=== PATIENT | male | born 1985 | race Caucasian/White ===

== ENCOUNTER → 2019-02-28 | Outpatient (CLI) | payer BC | LOC: COL.LAB 13:44 | DX: L50.9 Urticaria, unspecified (principal) ==

== ENCOUNTER 2019-04-26 14:24 | Outpatient (CLI) | payer BC ==
[~2019-04-26] VITALS: Ht 177.8 cm; Wt 121.8 kg
[2019-04-26] MEDS ORDERED: ZYRTEC 10MG10 MG PO (14:39)
[2019-04-26] MEDS ORDERED: PRILOSEC 20MG20 MG PO (14:40)
[2019-04-26] MEDS ORDERED: PREDNISONE10 MG PO (14:41)
[2019-04-26] MEDS ORDERED: PEPCID 20MG TAB20 MG PO (14:42)
[2019-04-26] MEDS ORDERED: NATURAL IRON65 MG PO (14:43)
[2019-04-26] MEDS ORDERED: SINGULAIR 110 MG/TAB PO (14:43)
[2019-04-26 15:00] VITALS: BP 146/81; PULSE 77; TEMP 97.7
--- NOTE | 2019-04-26 17:02 | NUR ---
Pt observed for 2 hours post injection without reaction
== END 2019-04-26 17:05 | disposition home or self-care (01) ==
LOC: EUO 14:24
DX: L50.1 Idiopathic urticaria (principal); Z79.899 Other long term (current) drug therapy
CPT/HCPCS: J2357

== ENCOUNTER 2019-05-24 13:56 | Outpatient (CLI) | payer BC ==
[~2019-05-24] VITALS: Ht 177.8 cm; Wt 123.7 kg
[~2019-05-24 13:56] MED LIST: NATURAL IRON65 MG PO; PEPCID 20MG TAB20 MG PO; PREDNISONE10 MG PO; PRILOSEC 20MG20 MG PO; SINGULAIR 110 MG/TAB PO; ZYRTEC 10MG10 MG PO
[2019-05-24 14:20] VITALS: BP 133/88; PULSE 84; TEMP 97.4
== END 2019-05-24 14:20 | disposition home or self-care (01) ==
LOC: EUO 13:56
DX: L50.9 Urticaria, unspecified (principal); Z79.899 Other long term (current) drug therapy
CPT/HCPCS: J2357

== ENCOUNTER 2019-07-19 14:06 | Outpatient (CLI) | payer BC ==
[~2019-07-19] VITALS: Ht 177.8 cm; Wt 122.0 kg
[2019-07-19 14:35] VITALS: BP 124/78; PULSE 77; TEMP 98.1
== END 2019-07-19 14:30 | disposition home or self-care (01) ==
LOC: EUO 14:06
DX: L50.1 Idiopathic urticaria (principal); Z79.51 Long term (current) use of inhaled steroids
CPT/HCPCS: J2357

== ENCOUNTER 2019-08-29 13:31 | Outpatient (CLI) | payer BC ==
[~2019-08-29] VITALS: Ht 177.8 cm; Wt 123.3 kg
[2019-08-29 14:15] VITALS: BP 132/76; PULSE 76; TEMP 97.7
== END 2019-08-29 15:24 | disposition home or self-care (01) ==
LOC: EUO 13:31
DX: L50.1 Idiopathic urticaria (principal); Z79.51 Long term (current) use of inhaled steroids
CPT/HCPCS: J2357

== ENCOUNTER 2019-09-26 13:13 | Outpatient (CLI) | payer BC ==
[~2019-09-26] VITALS: Ht 177.8 cm; Wt 123.4 kg
[2019-09-26] MEDS ORDERED: PRILOSEC 20MG20 MG PO (13:32)
[2019-09-26 13:35] VITALS: BP 127/85; PULSE 83; TEMP 97.8
== END 2019-09-26 13:44 | disposition home or self-care (01) ==
LOC: EUO 13:13
DX: L50.1 Idiopathic urticaria (principal); Z79.899 Other long term (current) drug therapy
CPT/HCPCS: J2357

== ENCOUNTER 2019-10-24 13:00 | Outpatient (CLI) | payer BC ==
[~2019-10-24] VITALS: Ht 177.8 cm; Wt 123.7 kg
[2019-10-24 13:42] VITALS: BP 118/82; PULSE 78; TEMP 98
== END 2019-10-24 13:43 | disposition home or self-care (01) ==
LOC: EUO 13:00
DX: L50.1 Idiopathic urticaria (principal)
CPT/HCPCS: J2357

== ENCOUNTER 2019-11-24 13:07 | Outpatient (CLI) | payer BC ==
[~2019-11-24] VITALS: Ht 177.8 cm; Wt 121.8 kg
[2019-11-24 13:30] VITALS: BP 136/88; PULSE 84; TEMP 97.8
== END 2019-11-24 13:46 | disposition home or self-care (01) ==
LOC: EUO 13:07
DX: L50.1 Idiopathic urticaria (principal); Z79.899 Other long term (current) drug therapy
CPT/HCPCS: J2357

== ENCOUNTER 2020-01-19 13:30 | Outpatient (CLI) | payer BC ==
[~2020-01-19] VITALS: Ht 177.8 cm; Wt 122.4 kg
[2020-01-19 13:40] VITALS: BP 122/83; PULSE 80; TEMP 97.6
== END 2020-01-19 17:14 | disposition home or self-care (01) ==
LOC: EUO 13:30
DX: L50.9 Urticaria, unspecified (principal); Z79.899 Other long term (current) drug therapy
CPT/HCPCS: J2357

== ENCOUNTER 2020-03-15 08:01 | Outpatient (CLI) | payer BC ==
[~2020-03-15] VITALS: Ht 177.8 cm; Wt 123.3 kg
[2020-03-15 09:00] VITALS: BP 125/85; PULSE 70; TEMP 98.1
== END 2020-03-15 09:41 | disposition home or self-care (01) ==
LOC: EUO 08:01
DX: L50.9 Urticaria, unspecified (principal); Z79.899 Other long term (current) drug therapy
CPT/HCPCS: J2357

== ENCOUNTER 2020-07-05 13:59 | Outpatient (CLI) | payer BC ==
[~2020-07-05] VITALS: Ht 177.8 cm; Wt 115.0 kg
[2020-07-05 14:51] VITALS: BP 126/83; PULSE 72; TEMP 97.5
== END 2020-07-05 14:52 | disposition home or self-care (01) ==
LOC: EUO 13:59
DX: L50.9 Urticaria, unspecified (principal); Z79.899 Other long term (current) drug therapy
CPT/HCPCS: J2357

== ENCOUNTER 2020-09-04 13:53 | Outpatient (CLI) | payer BC ==
[~2020-09-04] VITALS: Ht 177.8 cm; Wt 118.3 kg
[2020-09-04 14:19] VITALS: BP 111/96; PULSE 86; TEMP 97.4
== END 2020-09-04 14:31 | disposition home or self-care (01) ==
LOC: EUO 13:53
DX: L50.9 Urticaria, unspecified (principal); Z79.899 Other long term (current) drug therapy
CPT/HCPCS: J2357

== ENCOUNTER 2020-10-30 13:46 | Outpatient (CLI) | payer BC ==
[~2020-10-30] VITALS: Ht 177.8 cm; Wt 120.0 kg
[2020-10-30 14:00] VITALS: BP 131/85; PULSE 64; TEMP 98
== END 2020-10-30 15:00 | disposition home or self-care (01) ==
LOC: EUO 13:46
DX: L50.9 Urticaria, unspecified (principal); Z79.899 Other long term (current) drug therapy
CPT/HCPCS: J2357

== ENCOUNTER 2020-12-25 14:03 | Outpatient (CLI) | payer BC ==
[2020-12-25 14:18] VITALS: BP 134/76; PULSE 79; TEMP 97.8
[2020-12-25] MEDS ORDERED: FLONASEALLERGY NS (14:24)
[2020-12-25] MEDS ORDERED: XOLAIR150 MG/1 M SQ (14:24)
== END 2020-12-25 14:41 | disposition home or self-care (01) ==
LOC: EUO 14:03
DX: L50.9 Urticaria, unspecified (principal); Z79.899 Other long term (current) drug therapy
CPT/HCPCS: J2357

== ENCOUNTER 2021-02-19 13:50 | Outpatient (CLI) | payer BC ==
[~2021-02-19] VITALS: Ht 177.8 cm; Wt 122.8 kg
[~2021-02-19 13:50] MED LIST changes: +FLONASEALLERGY NS; +XOLAIR150 MG/1 M SQ
[2021-02-19 14:56] VITALS: BP 142/91; PULSE 71; TEMP 98.1
== END 2021-02-19 15:00 | disposition home or self-care (01) ==
LOC: EUO 13:50
DX: L50.9 Urticaria, unspecified (principal); Z79.899 Other long term (current) drug therapy
CPT/HCPCS: J2357

== ENCOUNTER 2021-04-16 13:55 | Outpatient (CLI) | payer BC ==
[~2021-04-16] VITALS: Ht 177.8 cm; Wt 122.8 kg
[2021-04-16 15:06] VITALS: BP 135/86; PULSE 65; TEMP 98
== END 2021-04-16 15:07 | disposition home or self-care (01) ==
LOC: EUO 13:55
DX: L50.9 Urticaria, unspecified (principal); Z79.899 Other long term (current) drug therapy
CPT/HCPCS: J2357